=== PATIENT | female | born 1975 | race Caucasian/White ===

== ENCOUNTER 2017-02-21 14:41 | Emergency (ER) | payer MEDICAID ==
[~2017-02-21 14:41] MED LIST: ALBUTEROL2.5 MG/NEB IN; AMOXICILLIN 50500 MG PO; AMOXICILLIN500 M2 PO; AZITHROMYCIN250 MG PO; HYDROCODONE/ACE1 TA5 PO; MOTRIN 400MG.400 MG PO; NASONEX0.05 MG/AC; NOMEDS; NOMEDS XX; NORCO 325 MG-51 TAB PO; PERCOCET 5/3251 EACH PO; PREDNISONE 20MG20 MG PO; PREMARIN1.25 MG PO
--- OUTSIDE RECORDS SUMMARY | 2017-02-21 16:23 | External Medical Summary Rpt | CCD ---
Author Author , JESSICA LOPEZ Address Unknown Phone [email or web address] Care Team Providers Care Dance Costume Designer Name Role Phone [facility] Unavailable Unavailable [phone], [facility] [id number] [phone] [facility] # Unavailable Unavailable [id number], [facility] # [id number] Purpose Continuity of Care Document - 05-23-2009 through 2016 Problems Code Diagnosis DOS Provider Status J32.9 CHRONIC SINUSITIS, UNSPECIFIED K80.20 CALCULUS OF GALLBLADDER W/O CHOLECYSTIT IS W/O OBSTRUCTION N83.291 OTHER OVARIAN CYST, RIGHT SIDE R10.31 RIGHT LOWER QUADRANT PAIN S63.006A UNSP DISLOCATION OF UNSPECIFIED WRIST AND HAND, INIT ENCNTR Medications Na ND Rx Da Fi Fi Am Da Di Ph RX Ph St me C No te ll ll ou ys ag ar # ys at rm s nt no ma ic us Or Da si cy ia de te s n re d CE 00 08 08 [address] Ac PH 14 -2 -2 .0 TE 43 YE ti AL 39 19 R ve EX 89 20 20 AI TH IN 70 11 11 D OM 1 PH 50 AR 0 MA MG CY CA 03 PS 36 UL 0 E # 03 36 IN 00 08 08 [address] Ac OM 60 -2 -2 .0 TE 43 YE ti ET 35 18 R ve SCHAEFFER 43 20 20 AI TH ZI 82 11 11 D OM NE 1 PH AR 25 MA CY MG 03 TA 36 BL 0 ET # 03 36 IN 00 02 02 0 12 3 WA 46 AR Ac OM 60 -2 -2 0. L- 12 NO ti ET 31 8 MA 64 LD ve SCHAEFFER 58 20 20 0 RT 1 ZI 55 10 10 JR NE 8 PH . -C AR WI OD MA LL EI CY AR NE # D C SY 10 RU 12 P 33 ON 00 02 02 0 10 30 WA 79 AR Ac DA 78 -2 -2 .0 L- 45 NO ti NS 15 8- 8 MA 19 LD ve ET 23 20 20 RT 4 RO 86 10 10 JR N 4 PH . OD AR WI T MA LL 4 CY AR MG # D C TA 10 BL 12 ET 33
--- OUTSIDE RECORDS SUMMARY | 2017-02-21 16:23 | External Medical Summary Rpt | CCD ---
Author Author , JESSICA LOPEZ Address Unknown Phone Care Team Providers Care Maintenance Supervisor Electrical Name Role Phone [facility] Unavailable Unavailable [phone], [facility] [phone] [facility] # Unavailable Unavailable [phone], [facility] # [id number] Purpose Continuity of Care Document - 05-23-2009 [...] 36 UL 0 E # 03 36 MA 00 08 08 [address] Ac OM 60 -2 -2 .0 TE 43 YE ti ET 35 18 R ve SCHAEFFER 43 20 20 AI TH ZI 82 11 11 D OM NE 1 PH AR 25 MA CY MG 03 TA 36 BL 0 ET # 03 36 MA 00 02 02 0 12 3 WA [...]
--- OUTSIDE RECORDS SUMMARY | 2017-02-21 16:25 | External Medical Summary Rpt | CCD ---
Demographics Preferred Language Ethiopian Marital Status Unknown Yarsani Affiliation Unknown Race Unknown Ethnic Group Unknown Author Author , JESSICA LOPEZ Address Unknown Phone Immunization No patient found.
--- OUTSIDE RECORDS SUMMARY | 2017-02-21 16:25 | External Medical Summary Rpt | CCD ---
Demographics Preferred Language Chinese Marital Status Unknown Presybeterian Affiliation Unknown Race Unknown Ethnic Group Unknown Author Author , JESSICA LOPEZ Address Unknown Phone Immunization No patient found.
--- OUTSIDE RECORDS SUMMARY | 2017-02-21 16:25 | External Medical Summary Rpt ---
Author Author JESSICA Wu, [employer] Address Unknown Phone Unavailable
[2017-02-22] MEDS ORDERED: FLONASE 50 MCG16 GM (12:35)
[2017-02-22] MEDS ORDERED: BROMFED DM COU118 ML PO (12:35)
[2017-02-22] MEDS ORDERED: MEDROL 4MG. DOSE4 MG PO (12:35)
== END 2017-02-21 16:11 | disposition left against medical advice (07) ==
LOC: UTC 14:41
DX: Z53.21 Procedure and treatment not carried out due to patient leaving prior to being seen by health care provider (principal); H92.09 Otalgia, unspecified ear; J02.9 Acute pharyngitis, unspecified

== ENCOUNTER 2017-02-22 10:20 | Emergency (ER) | payer MEDICAID ==
[~2017-02-22] VITALS: Ht 175.3 cm; Wt 150.6 kg
--- OUTSIDE RECORDS SUMMARY | 2017-02-22 10:23 | External Medical Summary Rpt | CCD ---
Author Author , HELEN LOPEZ Address Unknown Phone [email or web address] Purpose Continuity of Care Document - through 2016 Problems Code Diagnosis DOS Provider Status J32.9 CHRONIC SINUSITIS, UNSPECIFIED K80.20 CALCULUS OF GALLBLADDER W/O CHOLECYSTIT IS W/O OBSTRUCTION N83.291 OTHER OVARIAN CYST, RIGHT SIDE R10.31 RIGHT LOWER QUADRANT PAIN S63.006A UNSP DISLOCATION OF UNSPECIFIED WRIST AND HAND, INIT ENCNTR
--- OUTSIDE RECORDS SUMMARY | 2017-02-22 10:23 | External Medical Summary Rpt | CCD ---
Author Author [employer] Address Unknown Phone Unavailable Purpose Continuity of Care Document - through 2016
--- OUTSIDE RECORDS SUMMARY | 2017-02-22 10:23 | External Medical Summary Rpt | CCD ---
Author Author , HELEN LOPEZ Address Unknown Phone [email or web address] Purpose Continuity of Care Document - through 2016 Problems Code Diagnosis DOS Provider Status J32.9 CHRONIC SINUSITIS, UNSPECIFIED K80.20 CALCULUS OF GALLBLADDER W/O CHOLECYSTIT IS W/O OBSTRUCTION N83.291 OTHER OVARIAN CYST, RIGHT SIDE R10.31 RIGHT LOWER QUADRANT PAIN S63.006A UNSP DISLOCATION OF UNSPECIFIED WRIST AND HAND, INIT ENCNTR
--- OUTSIDE RECORDS SUMMARY | 2017-02-22 10:24 | External Medical Summary Rpt | CCD ---
Demographics Preferred Language Malian Marital Status Unknown Religion Affiliation Unknown Race Unknown Ethnic Group Unknown Author Author , JESSICA LOPEZ Address Unknown Phone Immunization No patient found.
--- OUTSIDE RECORDS SUMMARY | 2017-02-22 10:24 | External Medical Summary Rpt | CCD ---
Demographics Preferred Language Montserratian Marital Status Unknown Spiritism Affiliation Unknown Race Unknown Ethnic Group Unknown Author Author , JESSICA LOPEZ Address Unknown Phone Immunization No patient found.
[2017-02-22 12:20] LABS: UTC STREP SCREEN NOT DETECTED (NOTDETECTED)
[2017-02-22] MEDS ORDERED: FLONASE 50 MCG16 GM (12:35)
[2017-02-22] MEDS ORDERED: BROMFED DM COU118 ML PO (12:35)
[2017-02-22] MEDS ORDERED: MEDROL 4MG. DOSE4 MG PO (12:35)
--- NOTE | 2017-02-22 12:36 | Urgent Treatment Center Report ---
History of Present Issue Date/Time Seen by Provider 02/22/17 1145 Visit Reason Pt arrived: Presenting Problem: Location if Accident: Onset of symptoms date/time:/ or onset unknown for: Have you (or family members/close friends) recently traveled outside the [place]? If Yes, where/when: Have you had exposure to infectious disease within the past month? TB? Other? Specify: Here w/ three children w/ similiar symptoms, just longer. c/o omero ear pain, sinus pressure, sore throat, rhinorrhea, nasal congestion and feeling like she needs to cough but hasn't. Started yesterday. No symptoms prior. Feeling feverish but no known fevers. Hasn't taken or tried anything for symptoms. Co workers w/ flu. Denies aches, chills. Source patient Exam Limitations no limitations ALLERGIES Coded Allergies: iodine (Severe, C-MGESUV-NZYB/THROAT 10/22/15) petrolatum,white (From VASELINE) (Intermediate, I-RASH 10/22/15) Home Medications Active Scripts HYDROCODONE/ACETAMINOPHEN ([place] 5-325 Tablet) 1 TAB PO Q6HP PRN pain #10 TAB Prov: 10/22/15 Reported Medications Conjugated Estrogens (Premarin) 1.25 MG PO DAILY #30 History Medical History General CAD? No Angina: No [place]: No Hypertension? No Hyperlipidemia? No CHF? No COPD? No Asthma? No Anemia? No Hernia? No Thyroid Problems? No Hypothyroidism? No CVA? No Seizures? No Diabetes? No UTI? No Stones? No GB Disease: No Nephritic Syndrome? No Asplenia? No Hepatitis? No Sickle Cell Disease? No Arthritis? No Cataracts? No Glaucoma? No MRSA? No TB? No Cancer? No Immunization HX DT/Tetanus UNKNOWN Flu 2014-FSN Pneumonia [id number] Surgical Hx Previous Surgery?Y CSETION X3 TUBAL LIGATION NICOLE Social History Smoking Hx Packs/day < 1 Pack Alcohol Alcohol: No Review of Systems All Other Systems Reviewed and Negative Constitutional see HPI Eyes denies drainage ENT see HPI, nose congestion. denies: ear discharge, throat swelling. Respiratory see HPI, denies shortness of breath, denies wheezing Cardiovascular denies chest pain Gastrointestinal denies no symptoms reported Skin denies rash Psychiatric/Neurological denies headache Physical Exam Vital Signs Vital Signs Date Time Temp Pulse Resp B/P Pulse O2 O2 Flow FiO2 Ox Delivery Rate 02/22 1239 98.1 73 20 100/79 98 02/22 1236 98.1 75 20 100/81 98 General Appearance no apparent distress, obese Eye Exam - bilateral eye normal exam Ear, Nose, Throat normal ENT inspection (x/ nasal sharon), no sinus tenderness Neck non-tender, supple Respiratory Status Yes: non productive cough. No: respiratory distress, productive cough. Lung Sounds anterior: lungs clear. posterior: lungs clear. bilateral: lungs clear. Cardiovascular regular rate/rhythm, no peripheral edema Neurologic alert, oriented x 3 Mental status normal mood/affect Skin normal color, warm/dry Lymphatic no adenopathy Medical Decision Making LABS/Meds/Orders Pt receiving controlled substance in ED? No Results/Orders Laboratory Tests 02/22/17 1203: Influenza Type A Ag NOT DETECTED, Influenza Type B Ag NOT DETECTED, Group A Strep Screen NOT DETECTED Orders Procedure Date/time Status UTC STREP SCREEN 02/22 1203 Complete UTC FLU A,B 02/22 1203 Complete Departure Departure Time of Disposition 1231 Disposition DC Home or Self Care(routine) Clinical Impression Primary Impression: Upper respiratory virus Condition STABLE Referrals NO REFERRAL IMMEDIATELY for new or worsening symptoms OR no noticeable improvement 3-5 days. 911 for difficulty breathing or swallowing. Patient Instructions DI for Viral Upper Respiratory Infection -- Adult Additional Instructions * No sign of bacterial infection. Likely viral. Virus can take 7-14 days to run their course * Monitor Temp. Tylenol every 4 hours as needed no more then 5 times a day or 4000mg in 24 hours and/or ibuprofen every 6 hours as needed no more then 3200mg in 24 hours (as long as your primary care doctor has told you that it is ok to take both) for fever/aches/pain. ER if fever no less than 101 despite tylenol and ibuprofen * Encourage fluids, water, gatorade, powerade, pedialyte if infant/toddler/child * warm salt water gargles * warm fluids * sore throat lozenges * sleep elevated * humidifier/vaporizer * flonase 2 sprays each nostril daily but may take 2-3 days to notice improvement with it. * Bromfed may cause drowsiness. Know how it effects you (or your child) before driving, caring for small children, or sending your child to school. No other antihistamines/allergy medications while taking bromfed. * Start steroid today. Helps with inflammation therefore, drianage, cough. Follow directions on package. Rvwd side effects. Pt reports they have taken them before. * * Your throat swab was sent for culture. Those results are typically sent to your primary care. Be sure to follow up in 2-3 days if no improvement so they can review those results and treat if necessary. If you don't have primary care, I recommend you get one but in the mean time, you will have to return to a walk in clinic. Discharge Counseling Counseled pt/family regarding diagnosis, test results, medications/RX, home care, follow up needs Prescriptions Current Visit Scripts Fluticasone Propionate (Flonase 50 Mcg Nasal [place]) 2 SPRAY NA DAILY #1 BOT Methylprednisolone (Medrol Dose Roni) 4 MG PO UD #1 RONI TAKE DIRECTED ON PACKAGING D-METHORPHAN HB/P-EPD HCL/BPM (Bromfed Dm Cough Syrup) 10 ML PO QIDP PRN cough #240 ML at 2307
[2017-02-22 12:39] VITALS: BP 100/79
== END 2017-02-22 12:40 | disposition home or self-care (01) ==
LOC: UTC 10:20
PROVIDERS: Nurse Practitioner Family
DX: J06.9 Acute upper respiratory infection, unspecified (principal)